=== PATIENT | female | born 1990 | race Two or more races ===

== ENCOUNTER 2021-10-03 22:32 | Inpatient (IN) | payer OTHER ==
[~2021-10-03] VITALS: Ht 157.5 cm; Wt 2.3 kg
[2021-10-03] MEDS ORDERED: PRENATAL TABLE1 EAC1 PO (22:40)
== END 2021-10-07 19:00 | disposition home or self-care (01) | DRG 788 ==
LOC: SURG-SUITE 22:32 → LDR 22:32 → OB/GYN 10-04 17:36 → SURG-SUITE 10-04 19:11
PROVIDERS: ADMIT Specialist; ATTEND Specialist
PROC: 4A1HXCZ Monitoring of Products of Conception, Cardiac Rate, External Approach (ICD-10-PCS; 2021-10-03)
PROC: 10D00Z1 Extraction of Products of Conception, Low, Open Approach (ICD-10-PCS; principal; 2021-10-04 14:00)
DX: O42.02 Full-term premature rupture of membranes, onset of labor within 24 hours of rupture (principal); O99.820 Streptococcus B carrier state complicating pregnancy; Z3A.39 39 weeks gestation of pregnancy; Z37.0 Single live birth; Z20.822 Contact with and (suspected) exposure to COVID-19